=== PATIENT | male | born 1945 | race Caucasian/White ===

== ENCOUNTER 2018-10-11 16:49 | Observation (INO) ==
[2018-10-11] MEDS ORDERED: methylPREDNISolone SOD SUC 125 MG/2 ML VIAL IV STA (21:57)
[2018-10-11] MEDS ORDERED: FAMOTIDINE 20 MG/2 ML VIAL IV STA (21:58)
[2018-10-11 22:30] LABS: Alanine Aminotransferase 20 U/L (16-61); Albumin 3.5 G/DL (3.4-5.0); Alkaline Phosphatase 87 U/L (45-117); Aspartate Amino Transferase 12 U/L (0-37); Bilirubin,Total < 0.39 MG/DL (0.2-1.0); Blood Urea Nitrogen 25 MG/DL (7-18); Calcium 8.4 MG/DL (8.5-10.1); Glucose 108 MG/DL (74-106); Osmolality,Calculated 287.1 MOS/KG (273-304); Total Protein 7.8 G/DL (6.4-8.3)
[2018-10-11 22:40] LABS: Basophils # 0.2 10*3/uL (0.0-0.2); Basophils % 0.7 % (0.0-0.8); Eosinophils # 3.7 10*3/uL (0.0-0.87); Eosinophils % 17.1 % (0.00-10.9); Hematocrit 36.4 VOL% (42.0-52.0); Hemoglobin 10.9 GM/DL (14.0-18.0); Immature Granulocytes % 0.8 %; Immature Granulocytes Absolute 0.17 #; Lymphocytes # 4.5 10*3/uL (1.4-4.0); Lymphocytes % 20.5 % (21.2-54.2); Mean Corpuscular HGB Conc 29.9 GM/DL (32-36); Mean Corpuscular Volume 97.6 FL (87-102); Monocytes % 9.9 % (1.7-12.7); Platelet Count 384 T/CUMM (130-400); Red Blood Count 3.73 MC/CUMM (3.8-5.5); Red Cell Distribution Width 16.1 % (9.3-17.3); White Blood Count 21.7 T/CUMM (4-12)
[2018-10-11] MEDS ORDERED: hydrOXYzine HCL 25 MG TABLET PO STA (22:42)
[2018-10-11] MEDS ORDERED: ONDANSETRON 4 MG/2 ML VIAL IV PRN (22:56)
[2018-10-11] MEDS ORDERED: ACETAMINOPHEN 325 MG TABLET PO PRN (22:56)
[2018-10-11 23:55] LABS: Eosinophils 19 % (0-10); Lymphocytes 17 % (20-55); Segmented Neutrophils 54 % (50-85); Total Cells Counted 100
[2018-10-11 23:56] LABS: Anisocytosis 1+; Platelet Estimate Adequate
[2018-10-12] MEDS ORDERED: TEMAZEPAM 15 MG CAPSULE PO ONE (00:39)
[2018-10-12] MEDS: diphenhydrAMINE 50 MG/1 ML VIAL IV SCH ×5 (02:29→23:40)
[2018-10-12] MEDS: FAMOTIDINE 20 MG/2 ML VIAL IV SCH ×3 (02:30→23:37)
[2018-10-12] MEDS: SODIUM CHLORIDE 0.9% 1,000 ML IV SCH ×3 (02:31→21:34)
[2018-10-12] MEDS ORDERED: methylPREDNISolone SOD SUC 40 MG/1 ML VIAL IV SCH (06:00)
[2018-10-12] MEDS: TAMSULOSIN 0.4 MG CAPSULE PO SCH (10:37)
[2018-10-12] MEDS: CARVEDILOL 12.5 MG TABLET PO SCH ×2 (10:37→21:23)
[2018-10-12] MEDS: hydrOXYzine HCL 25 MG TABLET PO SCH ×3 (11:51→21:24)
[2018-10-12] MEDS ORDERED: methylPREDNISolone SOD SUC 125 MG/2 ML VIAL IV SCH (14:00)
[2018-10-12] MEDS: methylPREDNISolone SOD SUC 125 MG/2 ML VIAL IV SCH ×2 (14:22→21:27)
[2018-10-12] MEDS: TRIAMCINOLONE 0.1% CREAM 80 GM TUBE TOP SCH ×2 (14:23→21:29)
[2018-10-12] MEDS: TEMAZEPAM 15 MG CAPSULE PO SCH (22:35)
[2018-10-13] MEDS: methylPREDNISolone SOD SUC 125 MG/2 ML VIAL IV SCH ×4 (03:22→20:26)
[2018-10-13 05:43] LABS: Basophils # 0.1 10*3/uL (0.0-0.2); Basophils % 0.4 % (0.0-0.8); Eosinophils % 0.1 % (0.00-10.9); Hemoglobin 10.2 GM/DL (14.0-18.0); Immature Granulocytes % 1.7 %; Immature Granulocytes Absolute 0.36 #; Lymphocytes # 5.5 10*3/uL (1.4-4.0); Lymphocytes % 25.8 % (21.2-54.2); Mean Corpuscular HGB Conc 30.9 GM/DL (32-36); Mean Corpuscular Volume 96.5 FL (87-102); Mean Platelet Volume 11.1 FL (9.6-12.0); Monocytes % 2.5 % (1.7-12.7); Neutrophils % 69.5 % (38.7-73.9); Platelet Count 364 T/CUMM (130-400); Red Blood Count 3.42 MC/CUMM (3.8-5.5); White Blood Count 21.4 T/CUMM (4-12)
[2018-10-13] MEDS: diphenhydrAMINE 50 MG/1 ML VIAL IV SCH ×3 (05:55→16:43)
[2018-10-13 06:11] LABS: Band Neutrophils 1 % (0-10); Eosinophils 1 % (0-10); Lymphocytes 26 % (20-55); Platelet Estimate Adequate; Segmented Neutrophils 70 % (50-85); Total Cells Counted 100
[2018-10-13 06:25] LABS: Alanine Aminotransferase 17 U/L (16-61); Alkaline Phosphatase 80 U/L (45-117); Aspartate Amino Transferase 8 U/L (0-37); Bilirubin,Direct < 0.100 MG/DL (0.0-0.20); Bilirubin,Indirect 0.4 MG/DL (0.0-1.0); Blood Urea Nitrogen 22 MG/DL (7-18); Calcium 8.7 MG/DL (8.5-10.1); Glucose 135 MG/DL (74-106); Osmolality,Calculated 287.1 MOS/KG (273-304)
[2018-10-13] MEDS: hydrOXYzine HCL 25 MG TABLET PO SCH ×3 (08:14→20:28)
[2018-10-13] MEDS: TAMSULOSIN 0.4 MG CAPSULE PO SCH (08:14)
[2018-10-13] MEDS: CARVEDILOL 12.5 MG TABLET PO SCH ×2 (08:14→20:28)
[2018-10-13] MEDS: SODIUM CHLORIDE 0.9% 1,000 ML IV SCH ×3 (08:15→20:28)
[2018-10-13] MEDS: TRIAMCINOLONE 0.1% CREAM 80 GM TUBE TOP SCH ×3 (08:15→20:31)
[2018-10-13] MEDS: FAMOTIDINE 20 MG/2 ML VIAL IV SCH ×2 (12:24→23:51)
[2018-10-13] MEDS: TEMAZEPAM 15 MG CAPSULE PO SCH (20:28)
[2018-10-14] MEDS: diphenhydrAMINE 50 MG/1 ML VIAL IV SCH ×5 (00:05→22:56)
[2018-10-14] MEDS: methylPREDNISolone SOD SUC 125 MG/2 ML VIAL IV SCH ×4 (02:40→20:08)
[2018-10-14 05:11] LABS: Basophils # 0.1 10*3/uL (0.0-0.2); Basophils % 0.3 % (0.0-0.8); Eosinophils % 0.1 % (0.00-10.9); Hematocrit 32.5 VOL% (42.0-52.0); Immature Granulocytes % 2.3 %; Immature Granulocytes Absolute 0.55 #; Lymphocytes # 4.8 10*3/uL (1.4-4.0); Lymphocytes % 20.5 % (21.2-54.2); Mean Corpuscular HGB Conc 30.8 GM/DL (32-36); Mean Corpuscular Volume 95.3 FL (87-102); Mean Platelet Volume 10.8 FL (9.6-12.0); NRBC # 0.03 10*3/uL; Neutrophils % 69.8 % (38.7-73.9); Platelet Count 376 T/CUMM (130-400); Red Blood Count 3.41 MC/CUMM (3.8-5.5); Red Cell Distribution Width 16.4 % (9.3-17.3); White Blood Count 23.5 T/CUMM (4-12)
[2018-10-14 05:45] LABS: Calcium 8.5 MG/DL (8.5-10.1); Osmolality,Calculated 291.1 MOS/KG (273-304)
[2018-10-14] MEDS: SODIUM CHLORIDE 0.9% 1,000 ML IV SCH (06:23)
[2018-10-14 06:28] LABS: Lymphocytes 14 % (20-55); Platelet Estimate Adequate; Segmented Neutrophils 80 % (50-85); Total Cells Counted 100
[2018-10-14 06:29] LABS: Hypochromasia 1+
[2018-10-14] MEDS: CARVEDILOL 12.5 MG TABLET PO SCH ×2 (08:23→20:10)
[2018-10-14] MEDS: hydrOXYzine HCL 25 MG TABLET PO SCH ×3 (08:23→20:10)
[2018-10-14] MEDS: TAMSULOSIN 0.4 MG CAPSULE PO SCH (08:23)
[2018-10-14] MEDS: TRIAMCINOLONE 0.1% CREAM 80 GM TUBE TOP SCH ×3 (08:25→20:12)
[2018-10-14] MEDS: FAMOTIDINE 20 MG/2 ML VIAL IV SCH ×2 (10:56→22:54)
[2018-10-14] MEDS: TEMAZEPAM 15 MG CAPSULE PO SCH (20:10)
[2018-10-15] MEDS: SODIUM CHLORIDE 0.9% 1,000 ML IV SCH (01:48)
[2018-10-15] MEDS: methylPREDNISolone SOD SUC 40 MG/1 ML VIAL IV SCH ×3 (03:07→15:22)
[2018-10-15 03:52] LABS: Basophils # 0.1 10*3/uL (0.0-0.2); Basophils % 0.3 % (0.0-0.8); Eosinophils % 0.1 % (0.00-10.9); Hemoglobin 10.1 GM/DL (14.0-18.0); Immature Granulocytes % 3.8 %; Immature Granulocytes Absolute 0.91 #; Lymphocytes # 5.8 10*3/uL (1.4-4.0); Lymphocytes % 24.5 % (21.2-54.2); Mean Corpuscular HGB Conc 29.7 GM/DL (32-36); Mean Corpuscular Volume 96.6 FL (87-102); Mean Platelet Volume 10.7 FL (9.6-12.0); Monocytes % 4.6 % (1.7-12.7); NRBC # 0.03 10*3/uL; Neutrophils % 66.7 % (38.7-73.9); Platelet Count 396 T/CUMM (130-400); Red Blood Count 3.52 MC/CUMM (3.8-5.5); Red Cell Distribution Width 16.5 % (9.3-17.3); White Blood Count 23.8 T/CUMM (4-12)
[2018-10-15 04:08] LABS: Calcium 8.4 MG/DL (8.5-10.1); Osmolality,Calculated 289.3 MOS/KG (273-304)
[2018-10-15 04:30] LABS: Lymphocytes 21 % (20-55); Segmented Neutrophils 70 % (50-85); Total Cells Counted 100
[2018-10-15 04:31] LABS: Anisocytosis 1+; Platelet Estimate Adequate
[2018-10-15] MEDS: diphenhydrAMINE 50 MG/1 ML VIAL IV SCH ×2 (05:50→11:11)
[2018-10-15] MEDS: hydrOXYzine HCL 25 MG TABLET PO SCH ×2 (10:56→15:21)
[2018-10-15] MEDS: CARVEDILOL 12.5 MG TABLET PO SCH (10:56)
[2018-10-15] MEDS: TRIAMCINOLONE 0.1% CREAM 80 GM TUBE TOP SCH ×2 (10:56→15:22)
[2018-10-15] MEDS: TAMSULOSIN 0.4 MG CAPSULE PO SCH (10:56)
[2018-10-15] MEDS: FAMOTIDINE 20 MG/2 ML VIAL IV SCH (10:57)
[2018-10-15 12:30] VITALS: BP 179/89
[2018-10-15] MEDS ORDERED: ISOSORBIDE MONONITRATE 30 MG TABLET PO SCH (15:00)
== END 2018-10-15 17:01 | disposition home health service (06) ==
LOC: N.ED 16:49 → INTOOBSV 22:56 → N.EDINP 22:56 → N.5E 10-12 00:18
PROVIDERS: ADMIT Internal Medicine; ATTEND Internal Medicine